=== PATIENT | female | born 1990 | race Caucasian/White ===

== ENCOUNTER 2022-12-19 19:03 | Outpatient (CLI) | payer BC, MEDICAID, SELFPAY ==
[2022-12-19 19:29] VITALS: BP 138/86; PULSE 84
[2022-12-19 19:30] VITALS: BP 139/89; PULSE 87
[2022-12-19 19:35] VITALS: BP 134/88; PULSE 89
[2022-12-19 19:45] VITALS: BP 120/85; PULSE 85
--- NOTE | 2022-12-19 19:55 | PC.NURSE ---
Called Reggie Villarreal CNM with pt admission. ROM plus negative. Tracing appropriate for gestational age. No contractions seen on monitor. Pt denies contractions. May D/C home to follow up with her OB doctor.
== END 2022-12-19 19:57 | disposition home or self-care (01) ==
LOC: ANHOBOP 19:13 → ANHOBPP 19:14
PROVIDERS: Visit Provider Obstetrics & Gynecology Gynecology
DX: O42.90 Premature rupture of membranes, unspecified as to length of time between rupture and onset of labor, unspecified weeks of gestation (principal); Z3A.00 Weeks of gestation of pregnancy not specified
CPT/HCPCS: 59025; 84112; 99199